=== PATIENT | female | born 1980 | race Caucasian/White ===

== ENCOUNTER 2023-12-16 20:16 | Outpatient (REF) | payer OTHER, SELFPAY ==
[2023-12-23 11:09] LABS: Age Gdln ACOG Testing Note (.); HPV Aptima Positive (Negative); IGP, Aptima HPV, rfx 16/18,45 Note (.)
== END 2023-12-16 20:17 | disposition home or self-care (01) ==
LOC: LAB 20:16
PROVIDERS: Visit Provider Physician Assistant
DX: Z01.419 Encounter for gynecological examination (general) (routine) without abnormal findings (principal)
CPT/HCPCS: 87624; G0145

== ENCOUNTER 2024-03-24 13:11 | Outpatient (OUT) | payer OTHER, SELFPAY ==
--- NOTE | 2024-03-24 | MM_ITS ---
Patient Name: ESTELA CONLEY MR#: [id number] : 1980 Exam Date: 03/24/2024 Ordering Doctor: KENAN Richard . RADIOLOGY REPORT PROCEDURE: MM TOMOSYNTHESIS SCREENING BI COMPARISON: MG MAMM SCREEN YOLI W CAD, 10/07/2020. INDICATIONS: SCREENING FOR MALIGNNAT NEOPLASM OF BREAST Calculator Name NCI Breast Cancer Risk Assessment Tool 5 Year Breast Cancer Risk 0.60% Lifetime Breast Cancer Risk 8.00% Personal Breast Cancer No Personal Ovarian Cancer No Treatments None Family Cancers Son with neuroblastoma cancer at age 1. LOCATION: [facility] BREAST COMPOSITION: There are scattered areas of fibroglandular density. FINDINGS: DIAGNOSTIC CATEGORY 1--NEGATIVE. NO CHANGE FROM COMPARISON ASSESSMENT. Scattered benign-appearing calcifications are present. Scattered benign-appearing lymph nodes are present. RIGHT BREAST: No significant suspicious finding. LEFT BREAST: No significant suspicious finding. RECOMMENDATIONS: ROUTINE MAMMOGRAM AND CLINICAL EVALUATION IN 12 MONTHS. PLEASE NOTE: A NORMAL MAMMOGRAM DOES NOT EXCLUDE THE POSSIBILITY OF BREAST CANCER. A CLINICALLY SUSPICIOUS PALPABLE LUMP SHOULD BE BIOPSIED. Dictated by: Preston Blank MD on 03/24/2024 at 14:56 Approved by: rPeston Blank MD on 03/24/2024 at 14:57
--- OUTSIDE RECORDS SUMMARY | 2024-03-24 13:22 | XMS_ITS | CCD ---
Author Organization [facility] Care Team Providers Care Engineering Aid Name Role Phone TORI ., DR SALAS Admitting Unavailabl e KARASIK ., DR SALAS Attending Unavailabl e NADERER, DR ROMIE Anderson Primary Care Unavailable NADERER, DR ROMIE Anderson Primary Care Unavailable FAWWAD, IBARRA H Admitting Unavailable FAWWAD, IBARRA H Attending Unavailable FAWWAD, IBARRA H Consulting Unavailable NADERER, DR ROMIE Anderson Primary Care Unavailable KARASIK ., DR SALAS Attending Unavailabl e KARASIK ., DR SALAS Consulting Unavailabl e KARASIK ., DR SALAS Admitting Unavailabl e NADERER, DR ROMIE Anderson Admitting Unavailable NADERER, DR ROMIE Anderson Attending Unavailable NADERER, DR ROMIE Anderson Primary Care Unavailable ZIEBER, DR SANJUANA Peterson Consulting Unavailable NADERER, DR ROMIE Anderson Primary Care Unavailable FAWWAD, IBARRA H Admitting Unavailable FAWWAD, IBARRA H Attending Unavailable FAWWAD, IBARRA H Consulting Unavailable Unavailable Primary Care Provider UnavailAnnmarie Cárdenas MD Primary Care Provider EMY VALDEZ Attending Unavailable EMY VALDEZ Attending Unavailable EMY VALDEZ Attending Unavailable ANNMARIE CHOI Attending Unavailable JIMBOCHINOHAMID M Referring Unavailable CHINO CHOIHAMID M Primary Care Unavailable ANNMARIE CHOI Attending Unavailable ROMIE IPNTO Referring Unavailable NO PCP, NO PCP Primary Care Unavailable JIMBOCHINO SalomonHAMID M Attending Unavailable JIMBO, MUHAMID M Primary Care Unavailable Allergies Allergy Classification Reported Allergen(s) Allergy Type Date of Onset Reaction(s) Facility (1 source) Azithromycin Drug Allergy 7 [facility] (1 source) Latex Drug allergy (disorder) 3 [facility] (1 source) metroNIDAZOLE Drug Allergy 3 [facility] (4 sources) Azithromycin; Translations: [AZITHROMYCIN] Drug Allergy 7 Hives [facility] (4 sources) Clindamycin; Translations: [CLINDAMYCIN] Drug Allergy 3 [facility] (3 sources) Latex Propensity to adverse reactions 7 Rash [facility] (4 sources) metroNIDAZOLE; Translations: [METRONIDAZOLE] Drug Allergy 7 Hives, Rash [facility] (1 source) natural latex rubber; Translations: [LATEX, NATURAL RUBBER] Propensity to adverse reactions to drug (disorder) 7 [facility] Medications Current Medications Medication Drug Class(es) Dates Sig (Normalized) Sig (Original) ARIPiprazole 10 mg oral tablet (3 sources) Atypical Antipsychotic Start: 10-22-2023 take 1 tablet by mouth in the morning ARIPiprazole (Abilify) 10 MG tablet Take 10 mg by mouth in the morning. 0 10/22/2023 Active busPIRone hydrochloride 10 mg oral tablet (3 sources) Start: 10-09-2023 take 1 tablet by mouth in the morning, then take 1 tablet by mouth in the evening, then take 1 tablet by mouth at bedtime busPIRone (Buspar) 10 MG tablet Take 1 tablet by mouth in the morning and 1 tablet in the evening and 1 tablet before bedtime. 0 10/09/2023 Active 2 ml dicyclomine hydrochloride 10 mg/ml injection (3 sources) Anticholinergic dicyclomine (Bentyl) 10 MG/ML injection every 6 (six) hours 0 Active fluconazole 150 mg oral tablet (2 sources) Azole Antifungal Start: 11-06-2023 End: 11-06-2023 fluconazole (Diflucan) 150 MG tablet Indications: Vaginal discharge Take 1 tablet (150 mg) by mouth 1 (one) time for 1 dose Repeat in 7 days if symptoms persist. 2 tablet 0 11/06/2023 11/06/2023 Active hydrOXYzine hydrochloride 25 mg oral tablet (3 sources) Antihistamine Start: 10-22-2023 take 1 tablet by mouth three times daily as needed hydrOXYzine HCl (Atarax) 25 MG tablet Take 25 mg by mouth 3 (three) times a day as needed 0 10/22/2023 Active omeprazole 40 mg delayed release oral capsule (3 sources) Proton Pump Inhibitor take 1 capsule by mouth in the morning omeprazole (PriLOSEC) [address] capsule Take 40 mg by mouth in the morning. 0 Active ondansetron 4 mg disintegrating oral tablet (3 sources) Serotonin-3 Receptor Antagonist Start: 08-31-2023 take 1 tablet by mouth every eight hours as needed ondansetron ODT (Zofran-ODT) 4 MG disintegrating tablet Take 4 mg by mouth every 8 (eight) hours if needed 0 08/31/2023 Active Problems Active Problems Problem Classification Problem Date Documented Date Episodic/Chronic Anxiety disorders (8 sources) Other specified anxiety disorders; Translations: [Anxiety disorder, unspecified] Onset: 04-23-2022 Chronic Immunizations and screening for infectious disease (3 sources) Encounter for screening for human papillomavirus (HPV); Translations: [Exposure to sexually transmissible disorder] Onset: 12-17-2022 11-05-2023 Episodic Mood disorders (1 source) Mood disorders; Translations: [Depression, unspecified] Onset: 09-18-2023 Other female genital disorders (2 sources) Vaginal discharge; Translations: [Other specified noninflammatory disorders of vagina] 11-05-2023 Episodic Other screening for suspected conditions (not mental disorders or infectious disease) (8 sources) Encounter for screening for malignant neoplasm of cervix; Translations: [Other specified abnormal findings of blood chemistry] Onset: 05-01-2022 Episodic Unclassified (1 source) mood Onset: 10-22-2023 Unclassified (1 source) Establish Care Onset: 09-18-2023 Past or Other Problems Problem Classification Problem Date Documented Da te Episodic/Chronic Other lower respiratory disease (4 sources) Other forms of dyspnea; Translations: [OTHER FORMS OF DYSPNEA] Onset: 12-23-2021 Episodic Results Test Name Value Interpretation Reference Range Facility URETHRITIS/DISCHARGE PLUS VA GINITIS (HTRX)on 11-08-2023 [facility]AE 0 [facility] ATOPOBIUM VAGINAE Not detected [facility] BVAB 2,3 (BACTERIAL VAGINOSIS ASSOCIATED BACTERIA 2, 3); MOBILUNCUS SPP 0 [facility] BVAB 2,3 (BACTERIAL VAGINOSIS ASSOCIATED BACTERIA 2, 3); MOBILUNCUS SPP Not detected [facility] KARLA ALBICANS, PARAPSILOSIS, TROPICALIS 25.551 Abnormal [facility] KARLA ALBICANS, PARAPSILOSIS, TROPICALIS Detected Abnormal [facility] KARLA GLABRATA 0 [facility] KARLA GLABRATA Not detected [facility] KARLA KRUSEI 0 [facility] KARLA KRUSEI Not detected [facility] CHLAMYDIA TRACHOMATIS 0 [facility] CHLAMYDIA TRACHOMATIS Not detected [facility] DFR (A1, A5), SUL (1,2) 0 PPM [facility] DFR (A1, A5), SUL (1,2) Not detected [facility] ERMB, C; MEFA 19.547 Abnormal PPM [facility] Health care ERMB, C; MEFA Detected Abnormal [facility] Health care GARDNERELLA VAGINALIS 27.93 Abnormal [facility] GARDNERELLA VAGINALIS Detected Abnormal [facility] Interpretation and review of laboratory results Abnormal [facility] MEGASPHAERA (TYPES 1, 2) 0 [facility] MEGASPHAERA (TYPES 1, 2) Not detected [facility] MYCOPLASMA GENITALIUM 0 [facility] MYCOPLASMA GENITALIUM Not detected [facility] NEISSERIA GONORRHOEAE 0 [facility] NEISSERIA GONORRHOEAE Not detected [facility] TET B, TET M 21.461 Abnormal PPM [facility] TET B, TET M Detected Abnormal [facility] TRICHOMONAS VAGINALIS 0 [facility] TRICHOMONAS VAGINALIS Not detected [facility] Healthcare [facility] e PAP ACOG PANEL 2: 30 to 65on 12-20-[address] [facility] Comment on above: Result Comment: Perf ormed at: WB Performed By: #### [id number] #### [facility] [address] [place] [address] Dr. Yamilet Townsend Age Gdln ACOG Testing 30-[address] [facility] Comment on above: Performed By: #### [id number] #### [facility] [address] [address] [address] Yamilet Townsend DIAGNOSIS: Comment Abnormal [facility] Comment on above: Result Comment: EPIT HELIAL CELL ABNORMALITY. LOW GRADE SQUAMOUS INTRAEPITHELIAL LESION (LSIL). Performed at: WB Performed By: #### [id number] #### [facility] [address] [address] [address] Yamilet Townsend Electronically signed by: Comment Normal [facility] Comment on above: Result Comment: Arleen Pelaez MD, Pathologist Performed at: WB Performed By: #### [id number] #### [facility] [address] [place] [address] Dr. Yamilet Townsend HPV Aptima Negative Normal Negative [facility] Comment on above: Result Comment: This nucleic acid amplification test detects fourteen high-risk HPV types (16,18,31,33,35,39,45,51,52,56,58,59,66,68) without differentiation. Performed at: =G Performed By: #### [id number] #### [facility] [address] [place] [address] Dr. Yamilet Townsend HPV Genotype Reflex Comment Normal [facility] Comment on above: Result Comment: Crit eria not met, HPV Genotype not performed. Performed at: WB Performed By: #### [id number] #### [facility] [address] [place] [address] Dr. Yamilet Townsend Methodology: Comment Normal [facility] Comment on above: Result Comment: This liquid based ThinPrep(R) pap test was screened with the use of an image guided system. Performed at: WB Performed By: #### [id number] #### [facility] [address] [place] [address] Dr. Yamilet Townsend Note: Comment Normal [facility] Comment on above: Result Comment: The Pap smear is a screening test designed to aid in the detection of premalignant and malignant conditions of the uterine cervix. It is not a diagnostic procedure and should not be used as the sole means of detecting cervical cancer. Both false-positive and false-negative reports do occur. . Performed at: WB Performed By: #### [id number] #### [facility] [address] [place] [address] Dr. Yamilet Townsend Pathologist Provided ICD10 Comment Normal [facility] Comment on above: Result Comment: [id number]. [id number] Performed at: WB Performed By: #### [id number] #### [facility] [address] [place] [address] Dr. Yamilet Townsend Performed by: Comment Normal [facility] Comment on above: Result Comment: Linda Best, [employer] Plant [employer] Consultant Performed at: WB Performed By: #### [id number] #### [facility] [address] [place] [address] Dr. Yamilet Townsend Recommendation: Comment Abnormal [facility] Comment on above: Result Comment: Sugg est follow up as clinically appropriate. Performed at: WB Performed By: #### [id number] #### [facility] [address] [place] [address] Dr. Yamilet Townsend Specimen adequacy: Comment Normal [facility] Comment on above: Result Comment: Sati sfactory for evaluation. Endocervical and/or squamous metaplastic cells (endocervical component) are present. Performed at: WB Performed By: #### [id number] #### [facility] [address] [place] [address] Dr. Yamilet Townsend FREE T3on 05-01-2022 FREE T3 3.62 pg/mlL Normal 2.18-3.[address] [facility] Comment on above: Performed By: #### T SH, FT3 #### [facility] [address] [place] [address] Dr. Yamilet Townsend TSHon 05-01-2022 TSH 0.771 uIU/mL Normal 0.358-3.740 [facility] Comment on above: Performed By: #### T SH, FT3 #### [facility] [address] [place] [address] Dr. Yamilet Townsend FREE T3on 04-23-2022 FREE T3 2.93 pg/mlL Normal 2.18-3.[address] [facility] Comment on above: Performed By: #### T SH, FT3 #### [facility] [address] [place] [address] Dr. Yamilet Townsend TSHon 04-23-2022 TSH 0.151 uIU/mL Critically low 0.358-3.740 [facility] Comment on above: Performed By: #### T SH, FT3 #### [facility] [address] [place] [address] Dr. Yamilet Townsend CTA CHEST WO W CONon 022 CTA CHEST WO W CON EXAMINATION: CTA CHEST WO W CON HISTORY: Dyspnea ; chronic dyspnea, chronic upper back/chest pain COMPARISON: No relevant comparison available. TECHNIQUE: Multi-planar CT images were created with IV contrast. Axial, Coronal, and Sagittal images. Dose reduction techniques were achieved by using automated exposure control and/or adjustment of mA and/or kV according to patient size and/or use of iterative reconstruction technique. 3-D reconstruction was performed on a separate workstation. FINDINGS: VASCULATURE: No pulmonary embolism or abnormal opacity. LUNGS: No visible pulmonary disease. PLEURA: No mass, effusion, or pneumothorax. ISABELL: No mass or adenopathy. MEDIASTINUM: No mass or adenopathy. CARDIAC: No enlargement, pericardial effusion, or pericardial thickening. AORTA: No aneurysm or dissection. CHEST WALL: No mass or axillary adenopathy. BONES: No bone lesion or fracture. LIMITED ABDOMEN: Several rounded hypodensities within the liver; one within the right hepatic lobe near the jenaro hepatis is stable; the rest are new. Limited images of the upper abdomen. OTHER: Negative. IMPRESSION: 1. No pulmonary embolism, infiltrates, or suspicious lung findings. 2. No appreciable bone abnormality or significant degenerative changes. 3. Several hypodense lesions within the liver which are nonspecific, but favor cysts or hemangiomas. Electronically authenticated by: SANJUANA FLORES Date: 2021-12-24 07:[address] [facility] Vital Signs Date Time Vital Sign Value Performing Clinician Faci lity 11-06-2023 09:08-0500 Body mass index (BMI) [Ratio] 23.53 kg/m2 Emy GRAYSON Work Phone: [facility] 11-06-2023 09:08-0500 Body weight 64.14 kg Emy GRAYSON Work Phone: [facility] Encounters Encounter Date Encounter Type Care Provider Facility Start: 03-06-2024 End: 03-06-2024 ambulatory ANNMARIE Moralez [facility] Start: 12-23-2023 End: 12-23-2023 ambulatory EMY VALDEZ Not Available Start: 12-16-2023 End: 12-16-2023 ambulatory EMY VALDEZ Not Available Start: 11-06-2023 External Result Encounter Emy GRAYSON Work Phone: [facility] Unsolicited Start: 11-06-2023 External Result Encounter Emy GRAYSON Work Phone: [facility] Unsolicited Start: 11-06-2023 End: 11-06-2023 ambulatory EMY VALDEZ Not Available Start: 11-06-2023 End: 11-06-2023 Office outpatient visit 15 minutes Emy GRAYSON Work Phone: [facility] Comment on above: Vaginal discharge; STD exposure Start: 11-04-2023 Chart abstracting Emy GRAYSON Work Phone: [facility] Start: 10-22-2023 End: 10-22-2023 ambulatory [facility] Start: 09-18-2023 End: 09-18-2023 ambulatory [facility] Start: 01-01-[address] JOSUE VALLE . Fa cility:[facility] Start: 12-11-2022 End: 12-11-[address] ROMIE PINTO Facility:[facility] Start: 05-01-2022 End: 05-02-[address] ROMIE PINTO Facility:[facility] Start: 04-23-2022 End: 04-24-[address] ROMIE PINTO Facility:[facility] Start: 12-23-2021 End: 12-24-[address] ROMIE PINTO Facility:[facility] Procedures Date Procedure Procedure Detail Performing Clinician Start: 11-06-2023 URETHRITIS/DISCHARGE PLUS VAGINITIS (HTRX) Emy GRAYSON Work Phone: Plan of Treatment Date Care Activity Detail Author Start: 12-16-2023 End: 12-16-2023 Patient encounter procedure 12/16/2023 10:00 AM EDT Office Visit [facility] [address] [place] [id number] Emy Valdez PA [address] [place] [address] [facility] Start: 11-06-2023 End: 11-06-2023 Patient encounter procedure 11/06/2023 8:50 AM EST Office Visit [facility] [address] [place] [id number] Emy Valdez PA [address] [place] [address] [facility] Payers Date Payer Category Payer Medicaid [facility] [place] [id number] 2016-Present [address] [place] [address] [id number] 1980 Unknown [id number] 1980 Unknown [id number] [id number] 1980 Unknown [id number] [id number] 1980 Unknown [id number] [id number] 1980 Unknown [id number] [id number] 1980 Unknown [id number] [id number] 1980 Unknown [id number] [id number] 1980 Unknown [id number] [id number] 1980 Unknown [id number] [id number] 1980 Unknown [id number] [id number] 1980 Unknown [id number] [id number] 1959 Unknown [id number] 1959 Unknown [id number] Social History Date Type Detail Facility Start: [facility]05[facility]23 [facility] History of tobacco use Current smoker [facility] History of tobacco use Cigarette Smoker [facility] Start: 11-05-2023 End: 11-06-2023 Alcohol intake Lifetime non-drinker (finding) [facility] Start: 1980 Sex Assigned At Not on file [facility] Start: 11-05-2023 Gender identity Not on file [facility] Start: 11-05-2023 History of Social function [facility] History of Present illness Narrative 11-06-2023 KENAN Lr - 11/06/2023 8:50 AM EST Note Date & Type Note Facility 11-06-2023 History of Presen t illness Narrative Reason for Appointment: Patient ID: Estela Alvarez is a 43 y.o. female who presents for STI Screening Patient presents today for Acute Visit appointment. Current Medications: has a current medication list which includes the following prescription(s): aripiprazole, buspirone, hydroxyzine hcl, ondansetron odt, dicyclomine, fluconazole, and omeprazole. 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 Irritable bowel syndrome with diarrhea Low grade squamous intraepithelial lesion (LGSIL) on cervical Pap smear Need for malaria prophylaxis Family History Problem Relation Name Age of Onset Hyperlipidemia Mother Diverticulitis Mother Hypertension Father Hyperlipidemia Father Heart failure Father Hepatitis Sister Hypertension Sibling Hyperlipidemia Sibling Social History Tobacco Use Smoking status: Former Types: Cigarettes Smokeless tobacco: Not on file Substance Use Topics Alcohol use: Never Drug use: Yes Types: Marijuana Past Surgical History: Procedure Laterality Date SECTION, LOW TRANSVERSE 03/25/2016 DILATION AND CURETTAGE OF UTERUS 06/27/2006 OTHER SURGICAL HISTORY cryosurgery of cervix Allergies Allergen Reactions Clindamycin Other Reaction(s): Nausea And Vomiting Azithromycin Hives Other Reaction(s): Unknown Latex Rash Metronidazole Hives and Rash Review of Systems: Review of Systems Constitutional: Negative. HENT: Negative. Eyes: Negative. Respiratory: Negative. Cardiovascular: Negative. Gastrointestinal: Negative. Genitourinary: Negative. Musculoskeletal: Negative. Skin: Negative. Neurological: Negative. All other systems reviewed and are negative. Hematological: Negative. Endocrine: Negative. Allergic/Immunologic: Negative. Objective Physical Exam Constitutional: Appearance: Normal appearance. She is normal weight. Genitourinary: No lesions in the vagina. No vaginal discharge, erythema or tenderness. Right Adnexa: not tender. Left Adnexa: not tender. No cervical discharge. HENT: Head: Normocephalic. Cardiovascular: Rate and Rhythm: Normal rate. Pulses: Normal pulses. Pulmonary: Effort: Pulmonary effort is normal. Breath sounds: Normal breath sounds. Abdominal: Palpations: Abdomen is soft. Musculoskeletal: General: Normal range of motion. Neurological: General: No focal deficit present. Mental Status: She is alert and oriented to person, place, and time. Psychiatric: Mood and Affect: Mood normal. Behavior: Behavior normal. Thought Content: Thought content normal. Judgment: Judgment normal. Vitals and nursing note reviewed. Vitals: Estimated body mass index is 23.53 kg/m as calculated from the following: Height as of 12/11/22: 5' 5 . Weight as of this encounter: 141 lb 6.4 oz. BP: No LMP recorded. Assessment/Plan Encounter Diagnoses Name Primary? Vaginal discharge STD exposure Pt presents for vaginal itching and irritation, states new partner was having urianry symptoms, pt denies symptoms and exam benign. Cultures obtained and sent to lab. We will send in diflucan for itching and follow up with cultures Documented by KENAN Lr on behalf of: KENAN Lr documented in this encounter [facility] Evaluation note Note Date & Type Note Facility Evaluation note Diagnosis Vaginal discharge Leukorrhea, not specified as infective STD exposure documented in this encounter [facility] Summary Purpose Family History No Family History Records FoundNo Family History Records FoundNo Family History Records Found Advance Directives No Advanced Directives Records FoundNo Advanced Directives Records FoundNo Advanced Directives Records Found Additional Source Comments INFORMATION SOURCE (unrecogn ized section and content) DATE CREATED AUTHOR 12/21/2022 [facility] DATE CREATED AUTHOR AUTHOR'S ORGANIZ ATION 12/24/2023 [facility] EPIC DATE CREATED AUTHOR AUTHOR'S ORGANIZ ATION 03/07/2024 [facility] Reason for Visit (unrecogniz ed section and content) Reason Comments STI Screening Care Teams (unrecognized sec tion and content) Engineering Aid Relationship Specialty Start Date End Date Annmarie Choi MD [address] [facility] [place] [address] PCP - General Family Medicine 11/06/23 Engineering Aid Relationship Specialty Start Date End Date Annmarie Choi MD [address] [place] [address] PCP - General Family Medicine 11/06/23 FOR RECORDS PERTAINING TO PATIENTS WHO ARE OR HAVE BEEN ENROLLED IN A CHEMICAL DEPENDENCY/SUBSTANCEABUSE PROGRAM, SOME INFORMATION MAY BE OMITTED. This clinical summary was aggregated from multiple sources. Caution should be exercised in using it in the provision of clinical care. This summary normalizes information from multiple sources, and as a consequence, information in this document may materially change the coding, format and clinical context of patient data. In addition, data may be omitted in some cases. CLINICAL DECISIONS SHOULD BE BASED ON THE PRIMARY CLINICAL RECORDS. [facility]. provides no warranty or guarantee of the accuracy or completeness of information in this document.
== END 2024-03-24 13:12 | disposition home or self-care (01) ==
LOC: MAMMO 13:11
PROVIDERS: Visit Provider Physician Assistant
DX: Z12.31 Encounter for screening mammogram for malignant neoplasm of breast (principal); Z12.4 Encounter for screening for malignant neoplasm of cervix; Z80.8 Family history of malignant neoplasm of other organs or systems
CPT/HCPCS: 77063; 77067; 87624; 88175

== ENCOUNTER 2024-03-24 20:26 | Outpatient (REF) | payer OTHER, SELFPAY ==
--- OUTSIDE RECORDS SUMMARY | 2024-03-24 20:31 | XMS_ITS | CCD ---
Author Organization [facility] Care Team Providers Care Tutoring Assistant Name Role Phone TORI ., DR SALAS [...] Provider UnavailAnnmarie Cárdenas MD Primary Care Provider [phone] EMY VALDEZ Attending Unavailable EMY VALDEZ Attending Unavailable EMY VALDEZ Attending Unavailable ANNMARIE CHOI Attending Unavailable JIMBOCHINOHAMID M Referring Unavailable CHINO CHOIHAMID M Primary Care Unavailable ANNMARIE CHOI Attending Unavailable ROMIE PINTO Referring Unavailable NO PCP, NO PCP Primary Care Unavailable JIMBOCHINO SalomonHAMID M Attending Unavailable JIMBO, MUHAMID M Primary Care Unavailable Allergies Allergy Classification Reported Allergen(s) Allergy Type Date of Onset Reaction(s) Facility (1 source) Azithromycin Drug Allergy 7 [facility] (1 source) Latex Drug allergy (disorder) 3 [facility] (1 source) metroNIDAZOLE Drug Allergy 3 [facility] (4 sources) Azithromycin; Translations: [AZITHROMYCIN] Drug Allergy 7 Hives [facility] Healthcare (4 sources) Clindamycin; Translations: [CLINDAMYCIN] Drug Allergy 3 [facility] Healthcare (3 sources) Latex Propensity to adverse reactions 7 Rash [facility] Healthcare (4 sources) metroNIDAZOLE; Translations: [METRONIDAZOLE] Drug Allergy 7 Hives, Rash [facility] Healthcare (1 source) natural latex [...] GINITIS (HTRX)on 11-08-[address] [facility] [facility] AT[facility] VAGINAE Not detected [facility] BVAB 2,3 (BACTERIAL VAGINOSIS ASSOCIATED BACTERIA 2, 3); MOBILUNCUS SPP 0 [facility] Healthcare BVAB 2,3 (BACTERIAL VAGINOSIS ASSOCIATED BACTERIA 2, 3); MOBILUNCUS SPP Not detected [facility] Healthcare KARLA ALBICANS, PARAPSILOSIS, TROPICALIS 25.551 Abnormal [...] Healthcare ERMB, C; MEFA 19.547 Abnormal PPM [facility] Health care ERMB, C; MEFA Detected Abnormal [facility] Health care GARDNERELLA VAGINALIS 27.93 Abnormal [facility] GARDNERELLA VAGINALIS Detected Abnormal [facility] Interpretation and review of laboratory results Abnormal [facility] MEGASPHAERA (TYPES 1, 2) 0 [facility] MEGASPHAERA (TYPES 1, 2) Not detected [facility] MYCOPLASMA GENITALIUM 0 [facility] MYCOPLASMA GENITALIUM Not detected [facility] NEISSERIA GONORRHOEAE 0 [facility] Healthcare NEISSERIA GONORRHOEAE Not detected [facility] TET B, TET M 21.461 Abnormal PPM [facility] TET B, TET M Detected Abnormal [facility] TRICHOMONAS VAGINALIS 0 [facility] TRICHOMONAS VAGINALIS Not detected [facility] Healthcare [facility] Healthcar e PAP ACOG PANEL 2: 30 to 65on 12-20-2022 . . Normal [facility] Comment on above: Result Comment: Perf ormed at: WB Performed By: #### [id number] #### [facility] [address] [place] [address] Dr. Yamilet Townsend Age Gdln ACOG Testing 30-65 Normal [facility] Comment on above: Performed By: #### [id number] #### [facility] [address] [address] [address] Yamilet Townsend DIAGNOSIS: Comment Abnormal [facility] Comment on above: Result Comment: EPIT HELIAL CELL ABNORMALITY. LOW GRADE SQUAMOUS INTRAEPITHELIAL LESION (LSIL). Performed at: WB Performed By: #### [id number] #### [facility] [address] [address] [address] Yamilet Townsend Electronically signed by: Comment Normal [facility] Comment on above: Result Comment: Arleen Pelaez MD, Pathologist Performed at: WB Performed By: #### [id number] #### [facility] [address] [place] [address] Dr. Yamilet Townsend HPV Aptima Negative Normal Negative [facility] Comment on above: Result Comment: This nucleic acid amplification test detects fourteen high-risk HPV types (16,18,31,33,35,39,45,51,52,56,58,59,66,68) without differentiation. Performed at: =G Performed By: #### [id number] #### [facility] [address] [place] [address] Dr. Yamilet Townsend HPV Genotype Reflex Comment Normal [facility] Comment on above: Result Comment: Crit eria not met, HPV Genotype not performed. Performed at: WB Performed By: #### [id number] #### [facility] [address] [place] [address] Dr. Yamilet Townsend Methodology: Comment Normal [facility] Comment on above: Result Comment: This liquid based ThinPrep(R) pap test was screened with the use of an image guided system. Performed at: WB Performed By: #### [id number] #### [facility] [address] [place] [address] Dr. Yamilet Townsend Note: Comment Normal [facility] Comment on above: Result Comment: The Pap smear is a screening test designed to aid in the detection of premalignant and malignant conditions of the uterine cervix. It is not a diagnostic procedure and should not be used as the sole means of detecting cervical cancer. Both false-positive and false-negative reports do occur. . Performed at: WB Performed By: #### [id number] #### [facility] [address] [place] [address] Dr. Yamilet Townsend Pathologist Provided ICD10 Comment Normal [facility] Comment on above: Result Comment: [id number] Performed at: WB Performed By: #### [id number] #### [facility] [address] [place] [address] Dr. Yamilet Townsend Performed by: Comment Normal [facility] Comment on above: Result Comment: Linda Best, Refinery Superintendent Performed at: WB Performed By: #### [id number] #### [facility] [address] [place] [address] Dr. Yamilet Townsend Recommendation: Comment Abnormal [facility] Comment on above: Result Comment: Sugg est follow up as clinically appropriate. Performed at: WB Performed By: #### [id number] #### [facility] [address] [place] [address] Dr. Yamilet Townsend Specimen adequacy: Comment Normal [facility] Comment on above: Result Comment: Sati sfactory for evaluation. Endocervical and/or squamous metaplastic cells (endocervical component) are present. Performed at: WB Performed By: #### [id number] #### [facility] [address] [place] [address] Dr. Yamilet Townsend FREE T3on 05-01-2022 FREE T3 3.62 pg/mlL Normal 2.18-3.98 [facility] Comment on above: Performed By: #### T SH, FT3 #### [facility] [address] [place] [address] Dr. Yamilet Townsend TSHon 05-01-2022 TSH 0.771 uIU/mL Normal 0.358-3.740 [facility] Comment on above: Performed By: #### T SH, FT3 #### [facility] [address] [place] [address] Dr. Yamilet Townsend FREE T3on 04-23-2022 FREE T3 2.93 pg/mlL Normal 2.18-3.98 [facility] Comment on above: Performed By: #### T SH, FT3 #### [facility] [address] [place] [address] Dr. Yamilet Townsend TSHon 04-23-2022 TSH 0.151 uIU/mL Critically low 0.358-3.740 [facility] Comment on above: Performed By: #### T SH, FT3 #### [facility] [address] [place] [address] Dr. Yamilet Townsend CTA CHEST WO W [...] by: SANJUANA FLORES Date: 2021-12-24 07:36 Normal [facility] Vital Signs Date Time Vital Sign Value Performing Clinician Faci lity 11-06-2023 09:08-0500 Body mass index (BMI) [Ratio] 23.53 kg/m2 Emy GRAYSON Work Phone: [facility] 11-06-2023 09:08-0500 Body weight 64.14 kg Emy GRAYSON Work Phone: [facility] Healthcare Encounters Encounter Date Encounter Type Care Provider Facility Start: 03-06-2024 End: 03-06-2024 ambulatory ANNMARIE Moralez [facility] Start: 12-23-2023 End: 12-23-2023 ambulatory [...] [facility] Start: 10-22-2023 End: 10-22-2023 ambulatory [facility] Start: 09-18-2023 End: 09-18-2023 ambulatory [facility] Start: 01-01-[address] [...] Visit [facility] [address] [place] [id number] Emy Valdez PA [address] [place] [address] [facility] Start: 11-06-2023 End: 11-06-2023 Patient encounter procedure 11/06/2023 8:50 AM EST Office Visit [facility] [address] [place] [id number] Emy Valdez PA [address] [place] [address] [facility] Payers Date Payer Category [facility]ayer [facility] [place] [id number] 2016-Present [address] [place] [address] [id number] 1980 Unknown [id number] [id number] 1980 Unknown [id number] 2.16.840.1.137090.3.579.2.593 1980 Unknown [id number] 2.16.840.1.594957.3.579.2.593 1980 Unknown [id number] 2.16.840.1.814234.3.579.2.593 1980 Unknown [id number] 2.16.840.1.766658.3.579.2.593 1980 Unknown [id number] 2.16.840.1.120895.3.579.2.1259 1980 Unknown [id number] 2.16.840.1.735719.3.579.2.1259 1980 Unknown [id number] 2.16.840.1.587747.3.579.2.1259 1980 Unknown [id number] 2.16.840.1.576163.3.579.2.1286 1980 Unknown [id number] 2.16.840.1.800779.3.579.2.1286 1980 Unknown [id number] 2.16.840.1.033108.3.579.2.1286 1959 Unknown [id number] 1959 Unknown [id number] Social History Date Type Detail Facility Start: [facility]-05-2023 [facility] History of [...] stress reaction ADHD (attention deficit hyperactivity disorder) ([facility]) Atypical squamous cell of undetermined significance of [...] DATE CREATED AUTHOR AUTHOR'S ORGANIZ ATION 12/24/2023 [facility] EPIC DATE CREATED AUTHOR AUTHOR'S ORGANIZ ATION 03/07/2024 [facility] Reason for Visit (unrecogniz ed section and content) Reason Comments STI Screening Care Teams (unrecognized sec tion and content) Tutoring Assistant Relationship Specialty Start Date End Date Annmarie Choi MD [address] [facility] [address] PCP - General Family Medicine 11/06/23 Tutoring Assistant Relationship Specialty Start Date End Date Annmarie Choi MD [address] [place] [address] PCP - General Family Medicine 11/06/23 FOR [...] BE BASED ON THE PRIMARY CLINICAL RECORDS. [facility]. provides no warranty or guarantee of the accuracy or completeness of information in this document.
== END 2024-03-24 20:27 | disposition home or self-care (01) ==
LOC: LAB 20:26
PROVIDERS: Visit Provider Obstetrics & Gynecology
DX: Z12.4 Encounter for screening for malignant neoplasm of cervix (principal)
CPT/HCPCS: 87624; 88175